=== PATIENT | female | born 1985 | race African-American/Black ===

== ENCOUNTER 2025-01-17 07:30 | Emergency (ER) | payer BC, MEDICAID ==
[~2025-01-17] VITALS: Ht 165.1 cm; Wt 73.0 kg
[2025-01-17 07:54] VITALS: O2SAT 99
[2025-01-17 08:27] VITALS: TEMP 36.9
[2025-01-17] MEDS: LORAZEPAM 1MG TABLET PO ONE (09:42)
[2025-01-17 09:47] VITALS: BP 103/64; PULSE 65; RESP 16; O2SAT 100
== END 2025-01-17 09:50 | disposition home or self-care (01) ==
LOC: ER 07:30
DX: F41.9 Anxiety disorder, unspecified (principal); Z79.899 Other long term (current) drug therapy; Z98.890 Other specified postprocedural states
CPT/HCPCS: 93005; 99283